=== PATIENT | female | born 1985 | race Caucasian/White ===

== ENCOUNTER 2020-09-18 08:19 | Outpatient (REF) | payer OTHER, SELFPAY ==
[2020-09-18 10:42] LABS: Alanine Aminotransferase 10 U/L (0-31); Albumin Level 4.1 g/dL (3.5-5.0); Alkaline Phosphatase 24 U/L (39-117); Anion Gap 10 (12-20); Aspartate Amino Transferase 16 U/L (5-31); Bilirubin Total 0.8 mg/dL (0.0-1.0); Blood Urea Nitrogen 16 mg/dL (9-16); Carbon Dioxide 27 mmol/L (22-29); Chloride 106 mmol/L (96-108); Cholesterol 168 mg/dL; Estimated Glomerular Filt Rate > 60; Glucose Fasting 81 mg/dL (60-99); HDL Cholesterol 76 mg/dL; LDL Cholesterol Calculated 76 mg/dl; Potassium 4.4 mmol/l (3.3-5.1); Sodium 139 mmol/L (135-145); Total Protein 6.3 g/dL (6.5-8.0); Triglycerides 81 mg/dL
[2020-09-18 10:57] LABS: Vitamin D 25-OH Total 31.6 ng/mL (>30)
== END 2020-09-18 08:20 | disposition home or self-care (01) ==
LOC: HO.LAB 08:19
PROVIDERS: PCP Nurse Practitioner Family; Visit Provider Nurse Practitioner Family
DX: Z13.220 Encounter for screening for lipoid disorders (principal); Z13.21 Encounter for screening for nutritional disorder; Z13.29 Encounter for screening for other suspected endocrine disorder
CPT/HCPCS: 80053; 80061; 82306; 84443

== ENCOUNTER 2020-09-26 11:40 | Outpatient (REF) | payer OTHER, SELFPAY ==
[2020-09-26 12:15] LABS: COVID-19 Test Negative (Negative)
== END 2020-09-26 11:41 | disposition home or self-care (01) ==
LOC: HO.LAB 11:40
PROVIDERS: Visit Provider Internal Medicine
DX: Z20.828 Contact with and (suspected) exposure to other viral communicable diseases (principal)
CPT/HCPCS: 87635; C9803

== ENCOUNTER 2021-04-15 12:45 | Outpatient (REF) | payer OTHER, SELFPAY ==
[2021-04-15 13:21] LABS: MANUAL DIFF FLAG NO
[2021-04-15 13:43] LABS: Alanine Aminotransferase 15 U/L (0-31); Albumin Level 4.2 g/dL (3.5-5.0); Alkaline Phosphatase 27 U/L (39-117); Aspartate Amino Transferase 16 U/L (5-31); Basophils Absolute Auto 0.1 X10*3/uL (0.0-0.2); Bilirubin Direct 0.3 mg/dL (0.0-0.5); Bilirubin Total 0.8 mg/dL (0.0-1.0); Eosinophils Absolute Auto 0.1 X10*3/uL (0.0-0.4); Eosinophils Percent Auto 1.5 % (0-4); Hematocrit 40.1 % (37-47); Hemoglobin 13.1 g/dl (12.0-16.0); Imm Gran Abs Auto 0.02 X10*3/uL (0.00-0.03); Imm Gran Pct Auto 0.3 % (0.0-0.4); Lymphocytes Absolute Auto 2.2 X10*3/uL (1.2-4.9); Lymphocytes Percent Auto 30.1 % (20-40); Mean Corpuscular HGB Conc 32.7 g/dl (31.0-35.0); Mean Corpuscular Hemoglobin 31.3 pg (27.0-33.0); Mean Corpuscular Volume 95.9 fL (80-98); Monocytes Absolute Auto 0.5 X10*3/uL (0.1-1.2); Monocytes Percent Auto 6.3 % (2-11); Neutrophils Absolute Auto 4.4 X10*3/uL (2.0-8.3); Neutrophils Percent Auto 60.8 % (45-73); Platelet Count 299 X10*3/uL (160-400); Red Blood Count 4.18 X10*6/uL (4.20-5.50); Red Cell Distribution Width 12.4 % (11.0-16.0); Total Protein 6.5 g/dL (6.5-8.0); White Blood Count 7.2 X10*3/uL (4.8-10.8)
== END 2021-04-15 12:46 | disposition home or self-care (01) ==
LOC: HO.LAB 12:45
PROVIDERS: PCP Nurse Practitioner Family; Visit Provider Physician Assistant Medical
DX: L30.9 Dermatitis, unspecified (principal); L82.1 Other seborrheic keratosis
CPT/HCPCS: 36415; 80076; 85025

== ENCOUNTER 2021-09-12 11:00 | Outpatient (RCR) | payer OTHER, SELFPAY ==
--- NOTE | 2021-07-12 11:39 | MHC.PT.EP ---
[facility] [place] Office [place] Office [place] Office [address] Olena Brown [address] [phone] F: [phone] F: [phone] F: [phone] F: [phone] Physical Therapy Plan of Care Date of Evaluation: Date of Surgery: Diagnosis: right hip pain. Assessment: The patient arrived reporting right hip pain. 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 Her right illeum was rotated anteriorly. She was positive for an upslip on her left illeum. Hypomobility in left SIJ combined with increased hip mobility and flexibility created instability in right hip. After MET corrections she no longer had right hip clicking. I addressed intermittent DARIO by educating her on Pelvic floor health. I issued her HEP of pelvic stability combined with PFM contractions. I gave preliminary education on behavior modification and exercises/activities that may predispose her to increased pain. She is an excellent candidate for skilled PT. Frequency and Duration: The patient will be seen 2x/week x 4 weeks Short Term Goals: 1. Pt to improve behavior and habits that will limit aggravating SIJ dysfunction 2. Pt to be able to show improved breathing mechanics for bending and lifting. 3. Pt to be able to appropriately recruit PFM to help improve urinary incontinence. Intermediate Goals: 1. Pt to report less occurrence of hip clicking and catching with daily movement and/or exercise. 2. The patient to be able to return to PLOF without right hip pain. Treatment Plan: Modalities to reduce pain, spasms and effusion. Manual therapy to restore motion and function. Therapeutic exercise to improve strength and flexibility. Neuromuscular re-education for posture and balance. Therapeutic activities to return to functional activities of daily living. Electronically signed by: Jeana Dubose PT DPT Please sign and return to therapist. Thank you for your referral.
== END 2021-09-26 09:00 | disposition home or self-care (01) ==
LOC: HO.PT 11:00
PROVIDERS: PCP Nurse Practitioner Family; Visit Provider Nurse Practitioner Family
DX: M70.71 Other bursitis of hip, right hip (principal)
CPT/HCPCS: 97110; 97112; 97140; 97162

== ENCOUNTER 2021-10-01 07:59 | Outpatient (REF) | payer OTHER, SELFPAY ==
[2021-10-02 08:43] LABS: HBc Num1 0.05 S/CO (0.00-0.79); Hepatitis B Core Antibody Nonreactive (Nonreactive); ~HepC Num1 0.08 S/CO (0.00-0.79); ~Hepatitis C Antibody Nonreactive (Nonreactive)
[2021-10-02 08:48] LABS: HIV AB/AG Nonreactive (Nonreactive); HIV Num 1 0.06 S/CO (0.00-0.99)
[2021-10-02 09:54] LABS: Syphilis Screen Nonreactive (Nonreactive)
== END 2021-10-01 08:00 | disposition home or self-care (01) ==
LOC: HO.LAB 07:59
PROVIDERS: PCP Nurse Practitioner Family; Visit Provider Advanced Practice Midwife
DX: Z01.84 Encounter for antibody response examination (principal); Z11.4 Encounter for screening for human immunodeficiency virus [HIV]; Z11.59 Encounter for screening for other viral diseases; Z20.2 Contact with and (suspected) exposure to infections with a predominantly sexual mode of transmission
CPT/HCPCS: 36415; 86704; 86780; 86803; 87389

== ENCOUNTER 2021-11-20 08:17 | Outpatient (REF) | payer OTHER, SELFPAY ==
[2021-11-20 08:54] LABS: Appearance Urine CLEAR; Color Urine YELLOW; Glucose Urine UA NEG (NEG); Leukocyte Esterase Urine NEG (NEG); Nitrite Urine NEG (NEG); PH 5.5 (5.0-8.0); Specific Gravity - Urine >= 1.030 (1.005-1.025); UACC Culture Trigger NO; Urine Blood TRACE (NEG); Urine Ketones NEG (NEG); Urine Protein NEG (NEG-TRACE)
[2021-11-20 09:12] LABS: Alanine Aminotransferase 12 U/L (0-31); Albumin Level 3.9 g/dL (3.5-5.0); Alkaline Phosphatase 24 U/L (39-117); Anion Gap 9 (12-20); Aspartate Amino Transferase 19 U/L (5-31); Bilirubin Total 0.9 mg/dL (0.0-1.0); Blood Urea Nitrogen 15 mg/dL (9-16); Calcium 9.5 mg/dL (8.4-10.2); Carbon Dioxide 26 mmol/L (22-29); Chloride 108 mmol/L (96-108); Cholesterol 169 mg/dL; Estimated Glomerular Filt Rate > 60; Glucose Fasting 88 mg/dL (60-99); HDL Cholesterol 68 mg/dL; LDL Cholesterol Calculated 83 mg/dl; Sodium 139 mmol/L (135-145); Total Protein 6.4 g/dL (6.5-8.0); Triglycerides 94 mg/dL
[2021-11-20 09:15] LABS: Squamous Epithelial Cell Urine TRACE /LPF
[2021-11-20 09:17] LABS: RBC Urine 0 /HPF (0); WBC Urine 0-2 /HPF (0-4)
[2021-11-20 09:32] LABS: TSH reflex Free T4 1.64 uIU/mL (0.32-4.0)
== END 2021-11-20 08:18 | disposition home or self-care (01) ==
LOC: HO.LAB 08:17
PROVIDERS: PCP Nurse Practitioner Family; Visit Provider Nurse Practitioner Family
DX: Z00.00 Encounter for general adult medical examination without abnormal findings (principal)
CPT/HCPCS: 36415; 80053; 80061; 81001; 84443

== ENCOUNTER → 2021-11-21 08:57 | Outpatient (BNVA) | payer OTHER, SELFPAY | PROVIDERS: PCP Nurse Practitioner Family; Referring Provider Nurse Practitioner Family; Visit Provider Surgery | DX: K64.5 Perianal venous thrombosis (principal) | CPT/HCPCS: 46600 ==

== ENCOUNTER 2021-11-26 12:03 | Outpatient (REF) | payer OTHER, SELFPAY ==
--- NOTE | ~2021-11-26 | US_ITS ---
EXAMINATION: US VENOUS WITH DOPPLER UPPER EXTREMITY, LEFT CLINICAL INFORMATION: Pain post IV puncture COMPARISON: None TECHNIQUE: Ultrasound of the upper extremity is performed using compression sonography and color and pulse Doppler flow with assessment of augmentation of flow. There is also imaging and Doppler assessment of the jugular and subclavian veins. Spectral analysis with color-flow imaging is performed. FINDINGS: The left internal jugular, subclavian, axillary, brachial, basilic and cephalic veins are patent. The radial and ulnar veins in the forearm are patent. No soft tissue solid or cystic mass is seen. US/US venous duplex UE LT IMPRESSION: No DVT demonstrated in the left upper extremity.
== END 2021-11-26 12:04 | disposition home or self-care (01) ==
LOC: HO.US 12:03
PROVIDERS: PCP Nurse Practitioner Family; Visit Provider Nurse Practitioner Family
DX: M79.602 Pain in left arm (principal); L98.9 Disorder of the skin and subcutaneous tissue, unspecified
CPT/HCPCS: 93971

== ENCOUNTER 2021-12-24 13:38 | Outpatient (REF) | payer OTHER, SELFPAY ==
[2021-12-24 14:51] LABS: Urine Cytology See Pathology rpt
[2021-12-24 14:53] LABS: Appearance Urine CLEAR; Color Urine STRAW; Glucose Urine UA NEG (NEG); Leukocyte Esterase Urine NEG (NEG); Nitrite Urine NEG (NEG); Specific Gravity - Urine <= 1.005 (1.005-1.025); Urine Blood NEG (NEG); Urine Ketones NEG (NEG); Urine Protein NEG (NEG-TRACE)
== END 2021-12-24 13:39 | disposition home or self-care (01) ==
LOC: HO.LAB 13:38
PROVIDERS: PCP Nurse Practitioner Family; Visit Provider Nurse Practitioner Family
DX: R31.29 Other microscopic hematuria (principal)
CPT/HCPCS: 81003; 87086; 88112

== ENCOUNTER 2022-05-20 08:02 | Outpatient (REF) | payer OTHER, SELFPAY ==
[2022-05-20 09:11] LABS: Appearance Urine CLEAR; Color Urine YELLOW; Glucose Urine UA NEG (NEG); Leukocyte Esterase Urine NEG (NEG); Nitrite Urine NEG (NEG); Specific Gravity - Urine 1.025 (1.005-1.025); UACC Culture Trigger NO; Urine Blood 1+ (NEG); Urine Ketones NEG (NEG); Urine Protein NEG (NEG-TRACE)
[2022-05-20 09:23] LABS: Mucus Urine 1+ /LPF; Squamous Epithelial Cell Urine 1+ /LPF; WBC Urine 0-2 /HPF (0-4)
== END 2022-05-20 08:03 | disposition home or self-care (01) ==
LOC: HO.LAB 08:02
PROVIDERS: PCP Nurse Practitioner Family; Visit Provider Nurse Practitioner Family
DX: Z00.00 Encounter for general adult medical examination without abnormal findings (principal)
CPT/HCPCS: 81001

== ENCOUNTER 2022-05-21 08:44 | Outpatient (REF) | payer OTHER, SELFPAY ==
[2022-05-21 08:55] LABS: MANUAL DIFF FLAG NO
[2022-05-21 10:32] LABS: Basophils Absolute Auto 0.1 X10*3/uL (0.0-0.2); Basophils Percent Auto 0.9 % (0-2); Eosinophils Absolute Auto 0.1 X10*3/uL (0.0-0.4); Eosinophils Percent Auto 1.7 % (0-4); Hematocrit 40.2 % (37.0-47.0); Hemoglobin 13.1 g/dl (12.0-16.0); Imm Gran Abs Auto 0.04 X10*3/uL (0.00-0.03); Imm Gran Pct Auto 0.6 % (0.0-0.4); Lymphocytes Absolute Auto 1.9 X10*3/uL (1.2-4.9); Lymphocytes Percent Auto 30.2 % (20-40); Mean Corpuscular HGB Conc 32.6 g/dl (31.0-35.0); Mean Corpuscular Hemoglobin 31.5 pg (27.0-33.0); Mean Corpuscular Volume 96.6 fL (80.0-98.0); Mean Platelet Volume 11.9 fL (9.4-12.3); Monocytes Absolute Auto 0.5 X10*3/uL (0.1-1.2); Monocytes Percent Auto 7.8 % (2-11); Neutrophils Absolute Auto 3.8 x10*3/uL (2.0-8.3); Neutrophils Percent Auto 58.8 % (45-73); Platelet Count 306 X10*3/uL (160-400); Red Blood Count 4.16 X10*6/uL (4.20-5.50); Red Cell Distribution Width 13.1 % (11.0-16.0); White Blood Count 6.4 X10*3/uL (4.8-10.8)
[2022-05-21 11:09] LABS: Alanine Aminotransferase 18 U/L (0-31); Albumin Level 4.1 g/dL (3.5-5.0); Alkaline Phosphatase 18 U/L (39-117); Anion Gap 13 (12-20); Aspartate Amino Transferase 22 U/L (5-31); Bilirubin Total 1.1 mg/dL (0.0-1.0); Blood Urea Nitrogen 14 mg/dL (9-16); Calcium 9.3 mg/dL (8.4-10.2); Carbon Dioxide 25 mmol/L (22-29); Chloride 108 mmol/L (96-108); Estimated Glomerular Filt Rate 59; Glucose Fasting 82 mg/dL (60-99); Potassium 4.6 mmol/L (3.3-5.1); Sodium 141 mmol/L (135-145); Total Protein 6.6 g/dL (6.5-8.0)
== END 2022-05-21 08:45 | disposition home or self-care (01) ==
LOC: HO.LAB 08:44
PROVIDERS: PCP Nurse Practitioner Family; Visit Provider Nurse Practitioner Family
DX: N20.0 Calculus of kidney (principal)
CPT/HCPCS: 36415; 80053; 85025

== ENCOUNTER 2022-05-28 14:50 | Outpatient (REF) | payer OTHER, SELFPAY ==
--- NOTE | ~2022-05-28 | US_ITS ---
EXAMINATION: US RETROPERITONEAL LIMITED (RENAL ONLY) CLINICAL INFORMATION: Calculus of kidney. COMPARISON: US retroperitoneal limited (renal only) 02/27/2020 and 03/08/2019. XR abdomen KUB 08/24/2017 and 07/29/2017. CT abdomen and pelvis without contrast 02/20/2017. TECHNIQUE: Real-time imaging of the kidneys. FINDINGS: RIGHT KIDNEY: 11.3 x 5.7 x 4.9 cm (SAG x AP x TRV). The kidney is normal in size, contour, and echogenicity. Renal cortical thickness is normal. No calculi or focal parenchymal lesions or hydronephrosis. LEFT KIDNEY: 10.6 x 5.1 x 5.1 cm (SAG x AP x TRV). The kidney is normal in size, contour, and echogenicity. Renal cortical thickness is normal. No calculi or focal parenchymal lesions. No hydronephrosis. US/US renal BI IMPRESSION: Unremarkable renal ultrasound.
== END 2022-05-28 14:51 | disposition home or self-care (01) ==
LOC: HO.US 14:50
PROVIDERS: Visit Provider Nurse Practitioner Family
DX: N20.0 Calculus of kidney (principal)
CPT/HCPCS: 76775

== ENCOUNTER 2022-10-06 08:28 | Outpatient (REF) | payer OTHER, SELFPAY ==
[2022-10-06 17:43] LABS: CT PCR NOT DETECTED (Not Detect.); NG PCR NOT DETECTED (Not Detect.)
[2022-10-07 12:07] LABS: BV Int Neg Control Negative (Negative); BV Int Pos Control Positive (Positive)
== END 2022-10-06 08:29 | disposition home or self-care (01) ==
LOC: HO.LNP 08:28
PROVIDERS: Visit Provider Advanced Practice Midwife
DX: Z01.419 Encounter for gynecological examination (general) (routine) without abnormal findings (principal)
CPT/HCPCS: 87480; 87491; 87510; 87591; 87660

== ENCOUNTER 2022-11-11 08:31 | Outpatient (REF) | payer OTHER, SELFPAY ==
[2022-11-11 08:37] LABS: MANUAL DIFF FLAG NO
[2022-11-11 09:05] LABS: Basophils Absolute Auto 0.1 X10*3/uL (0.0-0.2); Basophils Percent Auto 0.7 % (0-2); Eosinophils Absolute Auto 0.1 X10*3/uL (0.0-0.4); Eosinophils Percent Auto 1.7 % (0-4); Hematocrit 39.6 % (37.0-47.0); Hemoglobin 13.1 g/dl (12.0-16.0); Imm Gran Abs Auto 0.02 X10*3/uL (0.00-0.03); Imm Gran Pct Auto 0.3 % (0.0-0.4); Lymphocytes Absolute Auto 1.9 X10*3/uL (1.2-4.9); Lymphocytes Percent Auto 27.2 % (20-40); Mean Corpuscular HGB Conc 33.1 g/dl (31.0-35.0); Mean Corpuscular Hemoglobin 31.3 pg (27.0-33.0); Mean Corpuscular Volume 94.7 fL (80.0-98.0); Mean Platelet Volume 11.1 fL (9.4-12.3); Monocytes Absolute Auto 0.9 X10*3/uL (0.1-1.2); Monocytes Percent Auto 12.7 % (2-11); Neutrophils Absolute Auto 4.1 x10*3/uL (2.0-8.3); Neutrophils Percent Auto 57.4 % (45-73); Platelet Count 284 X10*3/uL (160-400); Red Blood Count 4.18 X10*6/uL (4.20-5.50); Red Cell Distribution Width 12.7 % (11.0-16.0); White Blood Count 7.1 X10*3/uL (4.8-10.8)
[2022-11-11 09:14] LABS: Appearance Urine Clear; Color Urine Yellow; Glucose Urine UA Negative (Negative); Leukocyte Esterase Urine Negative (Negative); Nitrite Urine Negative (Negative); PH 5.5 (5.0-9.0); UMIC TRIGGER UACC YES; Urine Blood Trace (Negative); Urine Ketones Negative (Negative); Urine Protein Negative (Neg-Trace)
[2022-11-11 09:19] LABS: Bacteria Urine None Seen (None Seen); Hyaline Casts Urine 0-2 /LPF (0-2); RBC Urine 0-2 /HPF (0-2); Squamous Epithelial Cell Urine 0-2 /HPF (0-2); WBC Urine 0-5 /HPF (0-5)
[2022-11-11 09:52] LABS: Alanine Aminotransferase 17 U/L (0-31); Albumin Level 4.1 g/dL (3.5-5.0); Alkaline Phosphatase 24 U/L (39-117); Anion Gap 10 (12-20); Aspartate Amino Transferase 21 U/L (5-31); Blood Urea Nitrogen 12 mg/dL (9-16); Calcium 9.2 mg/dL (8.4-10.2); Carbon Dioxide 26 mmol/L (22-29); Chloride 106 mmol/L (96-108); Cholesterol 162 mg/dL; Estimated Glomerular Filt Rate > 60; Glucose Fasting 82 mg/dL (60-99); HDL Cholesterol 77 mg/dL; LDL Cholesterol Calculated 71 mg/dl; Potassium 4.2 mmol/L (3.3-5.1); Sodium 138 mmol/L (135-145); Total Protein 6.5 g/dL (6.5-8.0); Triglycerides 74 mg/dL
[2022-11-11 09:59] LABS: TSH reflex Free T4 1.65 uIU/mL (0.32-4.0); Vitamin D 25-OH Total 31.9 ng/mL (>30)
[2022-11-11 11:22] LABS: Bilirubin Total 0.6 mg/dL (0.0-1.0)
== END 2022-11-11 08:32 | disposition home or self-care (01) ==
LOC: HO.LAB 08:31
PROVIDERS: PCP Nurse Practitioner Family; Visit Provider Nurse Practitioner Family
DX: Z00.00 Encounter for general adult medical examination without abnormal findings (principal); E55.9 Vitamin D deficiency, unspecified
CPT/HCPCS: 36415; 80053; 80061; 81001; 81003; 82306; 84443; 85025

== ENCOUNTER 2022-11-20 13:02 | Outpatient (REF) | payer OTHER, SELFPAY ==
[2022-11-20 15:06] LABS: Folate 5.6 ng/mL (> or = 4.0); Vitamin B12 338 pg/mL (200-900)
[2022-11-22 13:54] LABS: Ceruloplasmin 32 mg/dL (18-53)
[2022-11-25 14:03] LABS: Zinc 73 mcg/dL (60-130)
== END 2022-11-20 13:03 | disposition home or self-care (01) ==
LOC: HO.LAB 13:02
PROVIDERS: PCP Nurse Practitioner Family; Visit Provider Nurse Practitioner Family
DX: R74.8 Abnormal levels of other serum enzymes (principal)
CPT/HCPCS: 36415; 82390; 82607; 82746; 83735; 84630

== ENCOUNTER 2022-11-25 08:41 | Outpatient (REF) | payer OTHER, SELFPAY ==
--- NOTE | ~2022-11-25 | MM_ITS ---
EXAMINATION: MM SCREENING DIGITAL BREAST TOMOSYNTHESIS, BILATERAL CLINICAL INFORMATION: Screening. Asymptomatic. The lifetime risk of breast cancer based on the Tyrer-Cuzick Model is 18%. COMPARISON: Mammography: 04/12/2018 (baseline); right breast ultrasound 04/12/2018 TECHNIQUE: Digital breast tomosynthesis is performed in both the craniocaudal and mediolateral oblique views along with computer-aided detection (CAD). Synthesized 2D images are generated from the tomosynthesis. FINDINGS: The breasts are heterogeneously dense, which may obscure small masses (ACR BI-RADS breast composition Category c). There are no significant masses, abnormal calcifications, or other abnormalities. Parenchymal pattern is similar to prior studies. There is no developing density or architectural abnormality. The axilla and skin contours are unremarkable. No significant changes. MM/MM tomosynthesis screening BI IMPRESSION: No mammographic evidence of malignancy. ASSESSMENT: BI-RADS 1: Negative RECOMMENDATION: Routine annual mammography screening. This patient's information was entered into a reminder system with a target due date for their next mammogram.
== END 2022-11-25 08:42 | disposition home or self-care (01) ==
LOC: HO.MAMMO 08:41
PROVIDERS: PCP Nurse Practitioner Family; Visit Provider Nurse Practitioner Family
DX: Z12.31 Encounter for screening mammogram for malignant neoplasm of breast (principal)
CPT/HCPCS: 77063; 77067

== ENCOUNTER → 2023-06-16 11:28 | Outpatient (BNV) | payer OTHER, SELFPAY ==
--- NOTE | 2023-06-16 11:28 | A.OFFVIS_ITS ---
Intake Intake Visit Reasons: Amb Documentation Allergies No Known Allergies Allergy (Verified 05/12/23 08:27) Medication List - Last Reconciled 06/16/23 by Ron Waldron MD diazepam 5 mg PO BEDTIME PRN levonorgestrel-ethinyl estrad 0.15 mg-30 mcg (91) (Jolessa) 1 tab PO DAILY HPI HPI Comments History of Present Illness Details 38-year-old female presenting with a small lump in the right ear lobe noted after at ear piercing. She now feels a persistent lump below the skin with no redness or discharge. She denies any foreign body within the site. She is requesting excision. 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 Palpable inclusion cyst located in the lower ear lobe approximately 3-4 mm in diameter, with no overlying erythema or discharge. Resp Effort & Inspection: normal respiratory effort Skin General skin exam: no rashes or lesions noted Assessment & Plan Assessment & Plan (1) Epidermal inclusion cyst: Code(s): L72.0 - Epidermal cyst Plan Right ear epidermal inclusion cyst. I recommended an excision under local anesthesia as a minor surgery. This will be scheduled at her earliest convenience. Coding Level of Care Code New Pt Level 3 (93076) Diagnoses Epidermal inclusion cyst L72.0
== END ==
PROVIDERS: PCP Nurse Practitioner Family; Visit Provider Surgery
DX: L72.0 Epidermal cyst (principal)
CPT/HCPCS: 99203

== ENCOUNTER 2023-06-30 07:36 | Outpatient (REF) | payer OTHER, SELFPAY ==
[2023-06-30 07:42] VITALS: BMI 24.0
[2023-06-30 07:43] VITALS: BP 110/77; PULSE 75; RESP 16; TEMP 36.4; O2SAT 98
[2023-06-30 08:26] VITALS: BP 130/79; PULSE 62; RESP 16; O2SAT 95
--- NOTE | 2023-06-30 08:28 | W.PM.OPN ---
Operative Note Operative Note Date of Service: 06/30/23 Narrative: Preoperative diagnosis:Epidermal inclusion cyst right ear lobe Postoperative diagnosis: same Procedure: excision of epidermal inclusion cyst right ear lobe Surgeon: Ron Waldron MD Research And Development Manager: none Anesthesia: Sensorcaine 0.5% with epi Indications for procedure: 38-year-old female presenting with a subcutaneous nodule in the right ear lobe mobile within the subcutaneous tissue suggestive of a epidermal inclusion cyst. Lesion measures approximately 2-3 mm in diameter. Operative findings: Epidermal inclusion cyst right ear lobe Specimen: epidermal inclusion cyst right ear lobe Estimated blood loss: less than 2 mL Complications: none Procedure details: patient was brought to the minor surgery suite placed in a left lateral decubitus position. The site of surgery was confirmed by the patient in the right ear lobe. After assuring informed consent the skin was prepped with Betadine and draped in a sterile fashion. Local anesthesia was then infiltrated circumferentially in the posterior lobe directly below the epidermal inclusion cyst. An elliptical incision was then created in the skin carried out through subcutaneous tissue down to the cyst wall. This was then grasped with a hemostat. A sharp scissors was then used to dissect the lesion from the surrounding subcutaneous tissue. After assuring adequate hemostasis the skin was closed using interrupted 6 0 nylon sutures x2. A sterile spot bandage was applied. The patient tolerated the procedure well was discharged in stable condition. She will follow-up in 1 week for suture removal.
== END 2023-06-30 07:37 | disposition home or self-care (01) ==
LOC: HO.MS 07:36
PROVIDERS: PCP Nurse Practitioner Family; Visit Provider Surgery
PROC: (CPT 69100; principal; 2023-06-30 08:00)
DX: L72.0 Epidermal cyst (principal)
CPT/HCPCS: 69100; 88304; 88305

== ENCOUNTER → 2023-06-30 07:36 | Outpatient (BNV) | payer OTHER, SELFPAY | PROVIDERS: PCP Nurse Practitioner Family; Visit Provider Surgery | DX: L72.0 Epidermal cyst (principal) | CPT/HCPCS: 11440 ==

== ENCOUNTER → 2023-07-09 09:21 | Outpatient (BNVA) | payer OTHER, SELFPAY | PROVIDERS: PCP Nurse Practitioner Family; Visit Provider Surgery ==

== ENCOUNTER 2023-11-24 14:25 | Outpatient (REF) | payer OTHER, SELFPAY ==
[2023-12-01 03:14] LABS: HPV 16 RNA NOT DETECTED (NOT DETECTED); HPV mRNA E6/E7 rflx Detected (Not Detected)
== END 2023-11-24 14:26 | disposition home or self-care (01) ==
LOC: HO.LNP 14:25
PROVIDERS: PCP Nurse Practitioner Family; Visit Provider Advanced Practice Midwife
DX: Z01.419 Encounter for gynecological examination (general) (routine) without abnormal findings (principal); Z11.51 Encounter for screening for human papillomavirus (HPV); Z20.2 Contact with and (suspected) exposure to infections with a predominantly sexual mode of transmission
CPT/HCPCS: 0353U; 87624; 87625; 88142

== ENCOUNTER 2023-11-24 14:25 | Outpatient (AMB) | payer OTHER, SELFPAY ==
--- NOTE | 2023-11-24 14:26 | A.OFFVIS_ITS ---
Intake Vital Signs 11/24/23 14:36 Height 5 ft 4 in Weight 151 lb BMI 25.9 BP 110/76 Intake Visit Reasons: Annual/ DO NOT RS Technical Support Specialist: Technical Support Specialist Present (Gladys) Allergies No Known Allergies Allergy (Verified 11/24/23 14:36) Is last menstrual period known: Yes Last menstrual period: 10/25/23 HPI HPI Comments History of Present Illness Details She is a premenopausal woman presenting for annual examination. Doing well with concerns: Break through bleeding with the pill no missed pills, towards the end of the pill pack. Not interested in switching brands due to the previous bran caused a rash. She tries to eat healthy and stays active with exercise. Regular monthly menses. Currently is sexually active. She denies vaginal itching and irritation. STI screening offered; she accepts. Denies family history of breast, ovarian or colon cancer. Last pap smear 2018, negative. Mammogram: 2022. She denies any contraindications to control such as: migraines with aura, history of DVT or pulmonary emboli, high blood pressure, liver disease, thrombolic disorders, Lupus, +TI, breast cancer, or smoking. 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[employer] [place] Current occupational exposures/hazards: No Sexual orientation: Straight/Heterosexual Gender identity: Female Cognitive needs: No Hearing needs: No Vision needs: No Female Reproductive History Menstrual Duration of menses: 3-5 days Date of last menstrual period: 10/25/23 control method: pills and other (vasectomy) Total pregnancies: 2 Full term: 2 Number of Living Children: 2 Date of last pap smear: 06/24/19 (neg pap and hpv) Date of Mammogram: 11/25/22 (Birad 1) Review of Systems Const All systems reviewed & are unremarkable except as noted in HPI and below Reports as per HPI Eyes Reports no additional complaints ENT Reports no additional complaints Card Reports no additional complaints Resp Reports no additional complaints GI Reports as per HPI and Reports no additional complaints Reports as per HPI Musc Reports no additional complaints Skin/Breast Reports as per HPI Neuro Reports no additional complaints Psych Reports no additional complaints Endo Reports no additional complaints Wayne/Lymph Reports no additional complaints Aller/Immun Reports no additional complaints Physical Exam Vital Signs: Last Vital Signs BP 110/76 11/24/23 14:36 BMI result Body Mass Index 25.9 Const General: cooperative, healthy appearing, no acute distress, well developed and alert Orientation/consciousness: patient oriented x3 HEENT Head: Yes normal to inspection Eyes General: appearance normal, both eyes and all related structures Neck Neck: Yes normal visual inspection Thyroid: Thyroid normal Chest Other: Breast reconstructions scarring bilat Chest palpation & inspection: normal inspection of the chest and other (no puckering, dimpling, peau de orange, retraction, discharge, masses) Breast/axilla inspection: normal inspection of the breasts Breast/axilla palpation: normal palpation of the breasts Resp Effort & Inspection: normal respiratory effort GI Other: Abdominoplasty scarring Inspection: Yes normal to inspection Palpation (GI): Soft to palpation Rectal Exam - Female: deferred General: Yes bladder normal to palpation External Female Exam: normal external appearance and normal appearance of the urethra Speculum Exam - Vagina: normal appearance of the vagina, normal palpation and n ormal vaginal discharge Speculum Exam - Cervix: normal appearance of the cervix, normal palpation and Patulous cervix present Bimanual exam- vagina & uterus: normal bimanual exam, normal palpation, uterine size normal, bladder normal to palpation, normal palpation and non-tender Bimanual Exam- Adnexa, other: no masses Skin General skin exam: no rashes or lesions noted Rashes: no rashes Neuro General: patient oriented x3 Cognition (Neuro): normal cognition Extrem General: Yes normal to inspection Psych Attitude: cooperative Thought process: Normal thought process present Assessment & Plan Assessment & Plan (1) Encounter for well woman exam with routine gynecological exam: Code(s): Z01.419 - Encounter for gynecological examination (general) (routine) without abnormal findings Plan Discussed: Current recommendations for pap smears per ASCCP guidelines. Breast awareness and periodic breast exams. Maintain a healthy lifestyle including a well balanced diet and routine exercise. Use condoms for STI and prevention. Mammogram yearly. control hormone use warnings: go to ER if and loss of vision, blindness, severe headache, chest pain or difficulty breathing, severe abdominal pain, or any pain or swelling in an extremity. Discussed management of the pill with extended use follow-up as needed if any other concerns. All of her questions and concerns were addressed to the best of my ability. RTO in one year for annual electronic technician examination. This note is constructed using voice recognition software. While every effort has been made to ensure accuracy, clinical dietician errors may have been included. Orders: Orders Pap Smear Today Z01.419 - Encounter for gynecological examination (general) (routine) without abnormal findings CT NG by PCR Today Z20.2 - Contact with and (suspected) exposure to infections with a predominantly sexual mode of transmission Hepatitis C Antibody Today Z20.2 - Contact with and (suspected) exposure to infections with a predominantly sexual mode of transmission Hepatitis B Core Antibody Today Z20.2 - Contact with and (suspected) exposure to infections with a predominantly sexual mode of transmission Syphilis Screen Today Z20.2 - Contact with and (suspected) exposure to infections with a predominantly sexual mode of transmission HIV Ab/Ag Today Z20.2 - Contact with and (suspected) exposure to infections with a predominantly sexual mode of transmission Medications: Refilled levonorgestrel-ethinyl estrad 0.15 mg-30 mcg (91) (Jolessa) 1 tab PO DAILY 91 ea 4RF Coding Level of Care Code Est Pt Prev Care 40-64y(09926) Diagnoses Encounter for well woman exam with routine gynecological exam Z01.419
[2023-11-24 14:36] VITALS: BP 110/76; BMI 25.9
== END 2023-11-24 15:12 | disposition home or self-care (01) ==
LOC: HO.HWS 14:25
PROVIDERS: PCP Nurse Practitioner Family; Visit Provider Advanced Practice Midwife
DX: Z01.419 Encounter for gynecological examination (general) (routine) without abnormal findings (principal)
CPT/HCPCS: 99396

== ENCOUNTER → 2023-12-01 08:45 | Outpatient (BNV) | payer OTHER, SELFPAY | PROVIDERS: PCP Nurse Practitioner Family; Visit Provider Radiology Diagnostic Radiology | DX: Z12.31 Encounter for screening mammogram for malignant neoplasm of breast (principal) | CPT/HCPCS: 77063; 77067 ==

== ENCOUNTER 2023-12-01 08:52 | Outpatient (REF) | payer OTHER, SELFPAY ==
--- NOTE | ~2023-12-01 | MM_ITS ---
EXAMINATION: MM SCREENING DIGITAL BREAST TOMOSYNTHESIS, BILATERAL CLINICAL INFORMATION: Screening. Asymptomatic. The patient is status post bilateral breast reduction. COMPARISON: Mammography: This study is compared with prior exams dating back to 2018. TECHNIQUE: Digital breast tomosynthesis is performed in both the craniocaudal and mediolateral oblique views along with computer-aided detection (CAD). Synthesized 2D images are generated from the tomosynthesis. FINDINGS: The breasts are extremely dense, which lowers the sensitivity of mammography (ACR BI-RADS breast composition Category d). There are no significant masses, abnormal calcifications, or other abnormalities. Post reduction changes are present in each breast. MM/MM tomosynthesis screening BI IMPRESSION: No mammographic evidence of malignancy. ASSESSMENT: BI-RADS BI-RADS 2 - Benign Findings RECOMMENDATION: Routine annual mammography screening. 1 year F/U This examination should not preclude the clinical evaluation of a suspicious palpable abnormality. This patient's information was entered into a reminder system with a target due date for their next mammogram.
== END 2023-12-01 08:53 | disposition home or self-care (01) ==
LOC: HO.MAMMO 08:52
PROVIDERS: PCP Nurse Practitioner Family; Visit Provider Nurse Practitioner Family
DX: Z12.31 Encounter for screening mammogram for malignant neoplasm of breast (principal)
CPT/HCPCS: 77063; 77067

== ENCOUNTER 2024-03-15 08:01 | Outpatient (AMB) | payer OTHER, SELFPAY ==
--- NOTE | 2024-03-15 08:03 | A.OFFPC_ITS ---
Vital Signs 03/15/24 08:04 Height 5 ft 4 in Weight 144 lb BMI 24.7 BP 100/70 Blood Pressure Location Lt brachial Position Sitting Pulse 73 Pulse Source Pulse Oximeter Pulse Oximetry (%) 97 Oxygen Delivery Method Room Air Intake Visit Reasons: Annual PE Allergies No Known Allergies Allergy (Verified 03/15/24 08:27) Medication List - Last Reconciled 03/15/24 by KIMMIE Anaya diazepam 5 mg PO BEDTIME PRN norgestrel-ethinyl estradiol 0.3-30 mg-mcg (Ryan (28)) 1 tab PO DAILY Tobacco use date assessed: 03/15/24 Dental Screening Dental Screen Date: 05/12/23 Did you have a dental visit in the last 12 months?: Yes Did you have a dental problem in the last 6 months where you did not have access to dental care?: No Was dental information given to patient?: Patient has dentist HPI Annual PE HPI Details Pt is here for a PE. Will order labs. Mammo is up to date. 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 1. Little interest or pleasure in doing things: not at all 2. Feeling down, depressed, or hopeless: not at all 3. Trouble falling or staying asleep, or sleeping too much: not at all 4. Feeling tired or having little energy: not at all 5. Poor appetite or overeating: not at all 6. Feeling bad about yourself - or that you are a failure or have let yourself or your family down: not at all 7. Trouble concentrating on things, such as reading the newspaper or watching television: not at all 8. Moving or speaking so slowly that other people could have noticed. Or the opposite - being so fidgety or restless that you have been moving around a lot more than usual: not at all 9. Thoughts that you would be better off or of hurting yourself in some way: not at all Total score: 0 Depression Screening Interpretation: Negative Depression Screening Done: Yes 90440 - PHQ-9 Billing: Yes Source: Developed by Drs. Juan Dick, Ashlee Echevarria, Dalton Carrillo and colleagues, with an educational janessa from [employer]. Thrive Questionnaire Date Thrive assessed: 03/15/24 I am a: Patient What is your living situation today?: I have a steady place to live Within the past 12 months, did the food you bought not last and you didn't have the money to get more?: Never true Within the past 12 months, did you worry whether your food would run out before you got money to buy more?: Never true Do you have trouble paying for medicines?: No Do you have trouble getting transportation to medical appointments?: No Do you have trouble paying your heating and electricity bill?: No Do you have trouble taking care of your child, family member or friend?: No Do you have trouble with day-to-day activities such as bathing, preparing meals, shopping, managing finances, etc.?: No Are you currently unemployed and looking for a job?: No Are you interested in more education?: No Currently or been in a relationship where the following occur: no concerns reported THRIVE Score: 0 AUDIT C Alcohol Use Questionnaire (AUDIT-C) 1. How often do you have a drink containing alcohol?: Monthly or less 2. How many drinks containing alcohol do you have on a typical day when you are drinking?: 1 or 2 3. How often do you have six or more drinks on one occasion?: Never Total Score: 1 Score Reviewed/Action Taken: Yes JULIAN-7 AMB Questionnaire JULIAN-7 Date JULIAN - 7 assessed: 03/15/24 Feeling nervous, anxious, or on edge: 0 = Not at all Not being able to stop or control worryin = Not at all Worrying too much about different things: 0 = Not at all Trouble relaxin = Not at all Being so restless that it is hard to sit still: 0 = Not at all Becoming easily annoyed or irritable: 0 = Not at all Feeling afraid as if something awful might happen: 0 = Not at all Total JULIAN-7 score (0-4 normal; 5-9 mild; 10-14 moderate; 15-21 severe): 0 Source: Developed by Drs. Juan Dick, Ashlee Echevarria, Dalton Carrillo and colleagues, with an educational janessa from [employer]. Review of Systems Const Denies chills and Denies fever(s) Eyes Denies blurry vision ENT Denies vertigo, Denies dizziness and Denies sore throat Card Denies chest pain at rest, Denies chest pain with activity, Denies diaphoresis, Denies dyspnea and Denies dyspnea on exertion Resp Denies cough, Denies dyspnea, Denies dyspnea on exertion and Denies wheezing GI Denies abdominal pain, Denies melena, Denies hematochezia, Denies constipation, Denies diarrhea and Denies loose stools Denies hematuria Musc Denies numbness and Denies tingling Skin/Breast Denies lesions Neuro Denies vertigo, Denies dizziness, Denies numbness and Denies tingling Psych Denies anxiety, Denies depression, Denies homicidal ideation, Denies suicidal ideation and Denies other (substance abuse) Aller/Immun Denies wheezing Physical exam (Primary Care) Vital Signs: Last Vital Signs Pulse 73 03/15/24 08:04 BP 100/70 03/15/24 08:04 Pulse Ox 97 03/15/24 08:04 Oxygen Delivery Method Room Air 03/15/24 08:04 BMI result Body Mass Index 24.7 Tobacco/Smoking Status: Tobacco use Status Tobacco use date assessed 03/15/24 03/15/24 08:07 Patient Tobacco Use Status Never used Tobacco 03/15/24 08:03 e-Cigarette/Vaping Use Never Used 03/15/24 08:03 PHQ-9: PHQ-9 Score PHQ-9: Total score 0 03/15/24 08:09 Depression Screening Interpretation: Negative Thrive Assessment: Date of Thrive Assessment Date Thrive assessed 03/15/24 03/15/24 08:08 Currently or been in a relationship where the following occur: no concerns reported Const General: cooperative Nutritional Appearance: well nourished Orientation/consciousness: patient oriented x3 HENMT Head: Yes normal to inspection, Yes normocephalic and Yes atraumatic Ears: TM's normal bilaterally Eyes General: appearance normal, both eyes and all related structures Alignment and Position: alignment normal and position normal Neck Neck: Yes normal visual inspection and Yes no lymphadenopathy Thyroid: Thyroid normal Resp Effort & Inspection: normal respiratory effort Auscultation: clear to auscultation bilaterally Cardio Rate: regular rate Rhythm: regular rhythm Heart sounds: S1 normal heart sound present, S2 normal heart sound present and no murmurs GI Palpation (GI): Soft to palpation and nontender Auscultation: normal bowel sounds Skin Rashes: no rashes Neuro General: patient oriented x3, moves all extremities, no focal motor deficits and deep tendon reflexes 2+ bilaterally Romberg Test: Negative Psych Appearance: grossly normal Mental Status: mental status grossly normal Speech and movement: Normal speech and movement present Affect: normal affect Attitude: cooperative Thought process: Normal thought process present Thought content: Normal thought content present Insight: Good insight present (Psych) Judgement: Good judgement present (Psych) Assessment and Plan Assessment & Plan (1) Physical exam: Code(s): Z00.00 - Encounter for general adult medical examination without abnormal findings Plan: Labs ordered Plan The patient agreed to the use of a ophthalmic medical assistant for this encounter. Scribed for KIMMIE Joshi by Maricruz Conte ophthalmic medical assistant, on 03/15/2024 at 08:10 EST. Orders: Orders Complete Blood Count Auto Diff Today Z00.00 - Encounter for general adult medical examination without abnormal findings Lipid Panel Today Z00.00 - Encounter for general adult medical examination without abnormal findings Comprehensive Cascade. Panel Fast Today Z00.00 - Encounter for general adult medical examination without abnormal findings TSH reflex Free T4 Today Z00.00 - Encounter for general adult medical examination without abnormal findings UA CC w/rflx Micro + Cult Today Z00.00 - Encounter for general adult medical examination without abnormal findings Coding Level of Care Code Est Pt Prev Care 40-64y(82505) Diagnoses Physical exam Z00.00
[2024-03-15 08:04] VITALS: BP 100/70; PULSE 73; O2SAT 97; BMI 24.7
== END 2024-03-15 08:24 | disposition home or self-care (01) ==
PROVIDERS: PCP Nurse Practitioner Family; Visit Provider Nurse Practitioner Family
DX: Z00.00 Encounter for general adult medical examination without abnormal findings (principal)
CPT/HCPCS: 99396

== ENCOUNTER 2024-05-17 07:52 | Outpatient (REF) | payer OTHER, SELFPAY ==
[2024-05-17 08:15] LABS: MANUAL DIFF FLAG NO
[2024-05-17 08:45] LABS: Basophils Absolute Auto 0.1 X10*3/uL (0.0-0.2); Basophils Percent Auto 0.7 % (0-2); Eosinophils Absolute Auto 0.2 X10*3/uL (0.0-0.4); Eosinophils Percent Auto 1.8 % (0-4); Hematocrit 39.3 % (37.0-47.0); Hemoglobin 13.2 g/dl (12.0-16.0); Imm Gran Abs Auto 0.02 X10*3/uL (0.00-0.03); Imm Gran Pct Auto 0.2 % (0.0-0.4); Lymphocytes Percent Auto 36.2 % (20-40); Mean Corpuscular HGB Conc 33.6 g/dl (31.0-35.0); Mean Corpuscular Hemoglobin 31.9 pg (27.0-33.0); Mean Corpuscular Volume 94.9 fL (80.0-98.0); Mean Platelet Volume 11.3 fL (9.4-12.3); Monocytes Absolute Auto 0.5 X10*3/uL (0.1-1.2); Monocytes Percent Auto 5.5 % (2-11); Neutrophils Absolute Auto 4.6 x10*3/uL (2.0-8.3); Neutrophils Percent Auto 55.6 % (45-73); Platelet Count 292 X10*3/uL (160-400); Red Blood Count 4.14 X10*6/uL (4.20-5.50); Red Cell Distribution Width 12.3 % (11.0-16.0); White Blood Count 8.3 X10*3/uL (4.8-10.8)
[2024-05-17 09:07] LABS: Appearance Urine Clear; Color Urine Yellow; Glucose Urine UA Negative (Negative); Leukocyte Esterase Urine Negative (Negative); Nitrite Urine Negative (Negative); PH 5.5 (5.0-9.0); Specific Gravity - Urine 1.025 (1.005-1.025); Urine Blood Negative (Negative); Urine Ketones Negative (Negative); Urine Protein Negative (Neg-Trace)
[2024-05-17 09:18] LABS: Alanine Aminotransferase 10 U/L (0-31); Albumin Level 3.9 g/dL (3.5-5.0); Alkaline Phosphatase 19 U/L (39-117); Anion Gap 10 (12-20); Aspartate Amino Transferase 21 U/L (5-31); Bilirubin Total 0.8 mg/dL (0.0-1.0); Blood Urea Nitrogen 14 mg/dL (9-16); Calcium 9.4 mg/dL (8.4-10.2); Carbon Dioxide 25 mmol/L (22-29); Chloride 108 mmol/L (96-108); Cholesterol 157 mg/dL (<200); Estimated Glomerular Filt Rate > 60; Glucose Fasting 85 mg/dL (60-99); HDL Cholesterol 70 mg/dL (>40); LDL Cholesterol Calculated 69 mg/dL (<100); Sodium 139 mmol/L (135-145); Total Protein 6.5 g/dL (6.5-8.0); Triglycerides 94 mg/dL (<150)
[2024-05-17 09:34] LABS: TSH reflex Free T4 1.93 uIU/mL (0.32-4.0)
== END 2024-05-17 07:53 | disposition home or self-care (01) ==
LOC: HO.LAB 07:52
PROVIDERS: Absent Provider Advanced Practice Midwife; PCP Nurse Practitioner Family; Visit Provider Nurse Practitioner Family
DX: Z00.00 Encounter for general adult medical examination without abnormal findings (principal)
CPT/HCPCS: 36415; 80053; 80061; 81003; 84443; 85025

== ENCOUNTER → 2024-08-30 15:27 | Outpatient (REF) | payer OTHER, SELFPAY ==
--- NOTE | 2024-08-30 15:31 | CA_ITS ---
Transthoracic Echocardiogram Patient (Last, First, Middle): Ela Heath D Gender: Female Date of : 1985 Age: 39 Procedure Date: 08/30/2024 Procedure Type: Transthoracic Echocardiogram Location: OP Height: 162.56 cm Weight: 63.5 kg BSA: 1.68 m2 Heart Rate: bpm BP: 118 / 60 mmHg Freight Booker: Referring MD: Ron Duarte [facility] Boat Cleaning Supervisor: Stepan Graham MD Symptoms: Z82.49 - Family history of ischemic heart disease and other diseases of ... Study Quality: Good ECG Rhythm: Sinus Conclusions: - Normal study Findings Left Ventricle Normal left ventricular size, thickness, and systolic function. The visually estimated ejection fraction is between 60-65%. Spectral Doppler is indicative of a normal filling pattern. Right Ventricle Normal right ventricular cavity size and systolic function. Atria Both atria are normal in size. There is no evidence of interatrial shunt. Aortic Valve Normal aortic valve structure and function. There is no aortic valve stenosis. There is no aortic valve regurgitation. Mitral Valve Normal mitral valve structure and function. There is no mitral valve regurgitation. There is no mitral valve stenosis. Pulmonic Valve The pulmonic valve is likely normal. There is trace pulmonic valve regurgitation. Tricuspid Valve Normal tricuspid valve structure. There is trace tricuspid valve regurgitation. The right ventricular systolic pressure is normal. The right ventricular systolic pressure is 21 mmHg. Normal right atrial pressure. There is no evidence of pulmonary hypertension. Great Vessels All visible segments of the aorta are normal in size. The visualized portions of the pulmonary artery and branches are normal. Venous The inferior vena cava is normal in size and collapses greater than 50% with inspiration. Pericardium/Pleural There is no evidence of pericardial effusion. Prior Study Comparison No prior study available for comparison. Measurements 2D Linear Measurements IVSd: 0.96 0.6-0.9/0.6-1.0 cm LVIDd: 4.22 3.9-5.3/4.2-5.9 cm LVIDd Index: 2.51 2.4-3.2/2.2-3.1 cm/m2 LVIDs: 2.74 2.0-3.6 cm LVPWd: 1.00 0.7-1.1 cm Ao Root: 2.80 2.1-3.5 cm LA Diam: 3.10 2.7-3.8/3.0-4.0 cm LAIDs Index: 1.85 1.5-2.3 cm/m2 LV Mass: 167.67 67-162/88-224 g LV Mass Index: 99.80 43-95/49-115 g/m2 LVOT Diam: 2.00 3.0+(-)1.3 cm 2D Systolic Function EF 4C: 68.00 >55% EF 2C: 54.00 >55% EF BiP: 60.50 >55% Mitral Valve MV Pk E: 0.93 MV PK A: 0.53 MV Decel Time: 146.00 E/A: 1.80 E'Lateral: 17.40 E'Medial: 10.80 E/E' Med: 8.60 E/E' Lat: 5.30 PHT: 43.00 MVA PHT: 5.12 Decel [place]: 6.38 Aortic Valve AoV Pk Marcelino: 1.42 AoV Mn Marcelino: 0.95 AoV VTI: 0.35 AoV Pk Grad: 8.00 Aov Mn Grad: 4.00 ASHLEY Cont.VTI: 2.24 LVOT LVOT Pk Marcelino: 1.11 LVOT Mn Marcelino: 0.71 LVOT VTI: 0.25 LVOT Pk Grad: 5.00 LVOT Mn Grad: 3.00 LVOT Diam: 2.00 LVOT Area: 3.14 Diastolic Function MV Pk E: 0.93 MV Pk A: 0.53 E/A: 1.80 E'Medial: 10.80 E/E' Med: 8.60 E' Laterial: 17.40 E/E' Lat: 5.30 Right Ventricle TAPSE (mm): 26.00 TVS' Marcelino: 12.00 Tricuspid Valve TR Pk Marcelino: 2.13 TR Pk Grad: 18.00 RA Press: 3.00 RVSP: 21.00 Great Vessels Aorta Ao Root-2D: 2.80 2.0-3.7 cm Ao Asc: 3.40 2.1-3.4 cm Pulmonary Valve PV Pk Marcelino: 0.92 Peak PV Grad: 3.00 Updated in Other Vendor System with Status of Final Stepan Graham MD electronically signed on 08/31/2024 3:05:38 PM with status of Final
== END ==
LOC: HO.CARD 15:27
PROVIDERS: PCP Nurse Practitioner Family; Visit Provider Nurse Practitioner Family
DX: Z13.6 Encounter for screening for cardiovascular disorders (principal); Z82.49 Family history of ischemic heart disease and other diseases of the circulatory system
CPT/HCPCS: 93306

== ENCOUNTER → 2024-08-30 15:31 | Outpatient (BNV) | payer OTHER, SELFPAY | PROVIDERS: PCP Nurse Practitioner Family; Visit Provider Internal Medicine Cardiovascular Disease | DX: I36.1 Nonrheumatic tricuspid (valve) insufficiency (principal); Z82.49 Family history of ischemic heart disease and other diseases of the circulatory system | CPT/HCPCS: 93306 ==

== ENCOUNTER 2025-01-23 15:58 | Outpatient (REF) | payer OTHER, SELFPAY ==
--- NOTE | ~2025-01-23 | MM_ITS ---
EXAMINATION: MM SCREENING DIGITAL BREAST TOMOSYNTHESIS, BILATERAL CLINICAL INFORMATION: Screening. Asymptomatic. COMPARISON: Mammography: Comparison is made with available priors TECHNIQUE: Digital breast mammography with tomosynthesis is performed in both the craniocaudal and mediolateral oblique views along with computer-aided detection (CAD). FINDINGS: The breasts are extremely dense, which lowers the sensitivity of mammography (ACR BI-RADS breast composition Category d). Bilateral reduction mammoplasty. There are no significant masses, abnormal calcifications, or other abnormalities. MM/MM tomosynthesis screening BI IMPRESSION: No mammographic evidence of malignancy. ASSESSMENT: BI-RADS BI-RADS 2 - Benign Findings RECOMMENDATION: Routine annual mammography screening. 1 year F/U This examination should not preclude the clinical evaluation of a suspicious palpable abnormality. This patient's information was entered into a reminder system with a target due date for their next mammogram. Electronically signed by: Janki Remy DO 01/26/2025 06:09 AM L[place]ELL
== END 2025-01-23 15:59 | disposition home or self-care (01) ==
LOC: HO.MAMMO 15:58
PROVIDERS: PCP Nurse Practitioner Family; Visit Provider Nurse Practitioner Family
DX: Z12.31 Encounter for screening mammogram for malignant neoplasm of breast (principal)
CPT/HCPCS: 77063; 77067

== ENCOUNTER → 2025-01-23 16:15 | Outpatient (BNV) | payer OTHER, SELFPAY | PROVIDERS: PCP Nurse Practitioner Family; Visit Provider Internal Medicine | DX: Z12.31 Encounter for screening mammogram for malignant neoplasm of breast (principal) | CPT/HCPCS: 77063; 77067 ==

== ENCOUNTER 2025-02-20 08:09 | Outpatient (REF) | payer OTHER, SELFPAY | END 2025-02-20 08:10 | disposition home or self-care (01) | LOC: HO.MAMMO 08:09 | PROVIDERS: PCP Nurse Practitioner Family; Visit Provider Nurse Practitioner Family | DX: Z13.89 Encounter for screening for other disorder (principal) ==

== ENCOUNTER 2025-02-28 07:59 | Outpatient (REF) | payer OTHER, SELFPAY ==
--- NOTE | ~2025-02-28 | US_ITS ---
EXAMINATION: US SCREENING ULTRASOUND BREAST, BILATERAL CLINICAL INFORMATION: Dense breasts on mammography. Screening ultrasound. COMPARISON: None available. TECHNIQUE: Ultrasound is performed using grayscale imaging and color Doppler. Imaging is performed to include the four quadrants and retroareolar region. Both breasts are imaged. FINDINGS: Right breast: There is no suspicious finding by ultrasound. There is no solid mass or focal architectural abnormality. Left breast: There is no suspicious finding by ultrasound. There is no solid mass or focal architectural abnormality. US/US breast BI complete IMPRESSION: No suspicious findings on screening breast ultrasound. ASSESSMENT: BI-RADS 1 - Negative RECOMMENDATION: 1 year F/U This patient's information was entered into a reminder system with a target due date for their next mammogram. Electronically signed by: Janki Remy DO 02/28/2025 08:44 AM EDT
== END 2025-02-28 08:00 | disposition home or self-care (01) ==
LOC: HO.MAMMO 07:59
PROVIDERS: PCP Nurse Practitioner Family; Visit Provider Nurse Practitioner Family
DX: R92.30 Dense breasts, unspecified (principal)
CPT/HCPCS: 76641

== ENCOUNTER → 2025-02-28 08:00 | Outpatient (BNV) | payer OTHER, SELFPAY | PROVIDERS: PCP Nurse Practitioner Family; Visit Provider Internal Medicine | DX: R92.8 Other abnormal and inconclusive findings on diagnostic imaging of breast (principal) | CPT/HCPCS: 76641 ==

== ENCOUNTER 2025-04-05 07:59 | Outpatient (REF) | payer OTHER, SELFPAY ==
[2025-04-05 08:21] LABS: MANUAL DIFF FLAG NO
[2025-04-05 08:28] LABS: Basophils Absolute Auto 0.1 X10*3/uL (0.0-0.2); Basophils Percent Auto 0.7 % (0-2); Eosinophils Absolute Auto 0.2 X10*3/uL (0.0-0.4); Eosinophils Percent Auto 2.4 % (0-4); Hematocrit 37.5 % (37.0-47.0); Hemoglobin 12.6 g/dl (12.0-16.0); Imm Gran Abs Auto 0.02 X10*3/uL (0.00-0.03); Imm Gran Pct Auto 0.3 % (0.0-0.4); Lymphocytes Absolute Auto 2.7 X10*3/uL (1.2-4.9); Lymphocytes Percent Auto 38.6 % (20-40); Mean Corpuscular HGB Conc 33.6 g/dl (31.0-35.0); Mean Corpuscular Hemoglobin 31.5 pg (27.0-33.0); Mean Corpuscular Volume 93.8 fL (80.0-98.0); Monocytes Absolute Auto 0.4 X10*3/uL (0.1-1.2); Monocytes Percent Auto 6.3 % (2-11); Neutrophils Absolute Auto 3.6 x10*3/uL (2.0-8.3); Neutrophils Percent Auto 51.7 % (45-73); Platelet Count 295 X10*3/uL (160-400); Red Cell Distribution Width 12.6 % (11.0-16.0)
[2025-04-05 08:47] LABS: Appearance Urine Clear; Color Urine Yellow; Glucose Urine UA Negative (Negative); Leukocyte Esterase Urine Negative (Negative); Nitrite Urine Negative (Negative); PH 5.5 (5.0-9.0); Specific Gravity - Urine 1.015 (1.005-1.025); Urine Blood Negative (Negative); Urine Ketones Negative (Negative); Urine Protein Negative (Neg-Trace)
[2025-04-05 09:27] LABS: Erythrocyte Sedimentation Rate 7 MM/HR (0-20)
[2025-04-05 09:39] LABS: Alanine Aminotransferase 13 U/L (0-31); Alkaline Phosphatase 19 U/L (39-117); Anion Gap 11 (12-20); Aspartate Amino Transferase 22 U/L (5-31); Bilirubin Total 0.7 mg/dL (0.0-1.0); Blood Urea Nitrogen 12 mg/dL (9-16); C Reactive Protein < 0.10 mg/dL (< or = 0.50); Calcium 9.1 mg/dL (8.4-10.2); Carbon Dioxide 25 mmol/L (22-29); Chloride 108 mmol/L (96-108); Cholesterol 153 mg/dL (<200); Estimated Glomerular Filt Rate > 60; Glucose Fasting 90 mg/dL (60-99); HDL Cholesterol 76 mg/dL (>40); LDL Cholesterol Calculated 65 mg/dL (<100); Potassium 3.9 mmol/L (3.3-5.1); Sodium 140 mmol/L (135-145); TSH reflex Free T4 2.09 uIU/mL (0.32-4.0); Total Protein 6.6 g/dL (6.5-8.0); Triglycerides 64 mg/dL (<150)
[2025-04-05 09:56] LABS: Uric Acid 3.1 mg/dL (2.4-5.7)
[2025-04-06 18:20] LABS: Lyme Abs Screen <0.90 index
[2025-04-06 23:54] LABS: A. Phagocytphilium DNA,RT-PCR NOT DETECTED (NOT DETECTED); Babesia Microti DNA, RT-PCR NOT DETECTED (NOT DETECTED); Borrelia Miyamotoi,DNA RT-PCR NOT DETECTED (NOT DETECTED); E.Chaffeensis DNA RT-PCR NOT DETECTED (NOT DETECTED); Lyme(Borrelia ssp)DNA RT-PCR NOT DETECTED (NOT DETECTED)
[2025-04-07 07:24] LABS: Antibody to SS-A Antigen <1.0 NEG AI (<1.0 NEG); Antibody to SS-B Antigen <1.0 NEG AI (<1.0 NEG)
[2025-04-07 17:39] LABS: Cyclic Citrullinated Peptide <16 UNITS
[2025-04-12 08:03] LABS: Anti Nuclear Antibody Screen POSITIVE (NEGATIVE); Anti Nuclear Antibody Titer 1:40 titer
== END 2025-04-05 08:00 | disposition home or self-care (01) ==
LOC: HO.LAB 07:59
PROVIDERS: PCP Nurse Practitioner Family; Visit Provider Nurse Practitioner Family
DX: Z00.00 Encounter for general adult medical examination without abnormal findings (principal); M25.50 Pain in unspecified joint; Z13.6 Encounter for screening for cardiovascular disorders
CPT/HCPCS: 36415; 80053; 80061; 81003; 84443; 84550; 85025; 85652; 86038; 86039; 86140; 86200; 86235; 86617; 86618; 87468; 87469; 87478; 87484; 87798

== ENCOUNTER 2025-04-11 07:52 | Outpatient (AMB) | payer OTHER, SELFPAY ==
--- NOTE | 2025-04-11 07:56 | MHC.PC.OV ---
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 Officer Required: No Accompanied by: Self / Same As Patient Allergies No Known Allergies Allergy (Verified 04/11/25 07:58) Medication List - Last Reconciled 04/11/25 by TUSHAR Anaya- diazepam 5 mg PO BEDTIME PRN meloxicam 15 mg PO DAILY PRN 30 days norgestrel-ethinyl estradiol 0.3-30 mg-mcg (Ryan (28)) 1 tab PO DAILY Tobacco use date assessed: 04/11/25 Dental Screening Dental Screen Date: 04/11/25 Did you have a dental visit in the last 12 months?: Yes Did you have a dental problem in the last 6 months where you did not have access to dental care?: No Was dental information given to patient?: Patient has dentist HPI PE HPI Details History of Present Illness The patient is a 40-year-old female presenting for a routine physical examination. The primary concern addressed during the visit was right elbow pain. The patient experiences this pain particularly when the right upper extremity is extended, and the wrist is extended against resistance, with noted tenderness in the lateral epicondyle region. There are no accompanying systemic complaints such as fever, chills, or respiratory distress. 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 No specific preceding events or duration details were discussed. Health Maintenance - Mammograms: Up to date - Gynecological examination: Patient maintains regular visits Social History - Employment: Nurse Practitioner Review of Systems - General: Denies fever, chills - Cardiovascular: Denies chest pain - Respiratory: Denies shortness of breath - Gastrointestinal: Denies constipation, diarrhea, blood in stool - Genitourinary: Denies urinary issues - Musculoskeletal: Reports right elbow pain; denies other joint complaints - Neurological: Denies any neurological symptoms Physical Exam General: Cooperative, healthy appearing, comfortable, no acute distress and well developed Orientation: Patient oriented x3 Limitations: No limitations Head: Normal to inspection Ears: Hearing grossly normal bilaterally Nose: Normal external nose present Face and sinus: Normal facial exam Eyes: Appearance normal, both eyes and all related structures Neck: Normal visual inspection and Yes full ROM Respiratory: Normal respiratory effort and able to speak in complete sentences. Clear to auscultation bilaterally Cardiovascular: Regular rate and rhythm. Normal S1 and S2 GI: Normal to inspection. Soft to palpation and nontender Skin: No rashes or lesions noted Neuro: Patient oriented x3 Extremities: Tenderness noted in the right elbow, especially with right upper extremity extended and wrist extension against resistance. Most definitely a lateral epicondylitis. Results Plan I recommended the patient use a tennis elbow brace and start taking NSAIDs to manage pain and inflammation associated with lateral epicondylitis. I also instructed her to begin a rehabilitation regimen focusing on strengthening and stretching exercises to improve functionality and prevent further discomfort. Discussion Notes During the visit, I explained the diagnosis of lateral epicondylitis and its usual presentation. We discussed the management plan, emphasizing the benefits of using a tennis elbow brace for support and NSAIDs for reducing pain and inflammation. I highlighted the importance of starting a rehabilitation program to strengthen the elbow and prevent recurrence. The patient understood and agreed with the management approach and was informed of the need to monitor symptoms closely. Patient Instructions - Use a tennis elbow brace as advised - Take NSAIDs as directed for pain and inflammation - Begin a rehabilitation program focusing on elbow exercises [facility] Medical History Edgemont's disease Thrombosed external hemorrhoid Surgical History H/O breast augmentation H/O excision of epidermal inclusion cyst (06/30/23) S/P laparoscopic procedure Family History Maternal Grandmother History of breast cancer Paternal Grandmother Colon cancer Uterine cancer Social History Housing: House Patient Tobacco Use Status: Never used Tobacco e-Cigarette/Vaping Use: Never Used Second Hand Smoke Exposure: No service: No Current occupational status: employed 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 1. Little interest or pleasure in doing things: not at all 2. Feeling down, depressed, or hopeless: not at all 3. Trouble falling or staying asleep, or sleeping too much: not at all 4. Feeling tired or having little energy: not at all 5. Poor appetite or overeating: not at all 6. Feeling bad about yourself - or that you are a failure or have let yourself or your family down: not at all 7. Trouble concentrating on things, such as reading the newspaper or watching television: not at all 8. Moving or speaking so slowly that other people could have noticed. Or the opposite - being so fidgety or restless that you have been moving around a lot more than usual: not at all 9. Thoughts that you would be better off or of hurting yourself in some way: not at all Total score: 0 Depression Screening Interpretation: Negative Depression Screening Done: Yes 66642 - PHQ-9 Billing: Yes Source: Developed by Drs. Juan Dick, Ashlee Echevarria, Dalton Carrillo and colleagues, with an educational janessa from [employer]. Thrive Questionnaire Date Thrive assessed: 04/11/25 I am a: Patient What is your living situation today?: I have a steady place to live Within the past 12 months, did the food you bought not last and you didn't have the money to get more?: Never true Within the past 12 months, did you worry whether your food would run out before you got money to buy more?: Never true Do you have trouble paying for medicines?: No Do you have trouble getting transportation to medical appointments?: No Do you have trouble paying your heating and electricity bill?: No Do you have trouble taking care of your child, family member or friend?: No Do you have trouble with day-to-day activities such as bathing, preparing meals, shopping, managing finances, etc.?: No Are you currently unemployed and looking for a job?: No Are you interested in more education?: No Please select the resources that you would like help with: None Currently or been in a relationship where the following occur: I choose not to answer THRIVE Score: 0 AUDIT C Alcohol Use Questionnaire (AUDIT-C) 1. How often do you have a drink containing alcohol?: 2-4 times a month 2. How many drinks containing alcohol do you have on a typical day when you are drinking?: 1 or 2 3. How often do you have six or more drinks on one occasion?: Never Total Score: 2 Score Reviewed/Action Taken: Yes JULIAN-7 AMB Questionnaire JULIAN-7 Date JULIAN - 7 assessed: 04/11/25 Feeling nervous, anxious, or on edge: 0 = Not at all Not being able to stop or control worryin = Not at all Worrying too much about different things: 0 = Not at all Trouble relaxin = Not at all Being so restless that it is hard to sit still: 0 = Not at all Becoming easily annoyed or irritable: 0 = Not at all Feeling afraid as if something awful might happen: 0 = Not at all Total JULIAN-7 score (0-4 normal; 5-9 mild; 10-14 moderate; 15-21 severe): 0 Source: Developed by Drs. Juan Dick, Ashlee Echevarria, Dalton Carrillo and colleagues, with an educational janessa from [employer]. JULIAN-7 Assessment Billing JULIAN-7 Assessment Tool: JULIAN-7 Assessment 04389 Physical exam (Primary Care) Vital Signs: Last Vital Signs Temp 98.3 F 04/11/25 08:00 Pulse 85 04/11/25 08:00 BP 110/70 04/11/25 08:00 Pulse Ox 100 04/11/25 08:00 BMI result Body Mass Index 24.0 Tobacco/Smoking Status: Tobacco use Status Tobacco use date assessed 04/11/25 04/11/25 08:03 Patient Tobacco Use Status Never used Tobacco 04/11/25 08:03 e-Cigarette/Vaping Use Never Used 04/11/25 08:03 PHQ-9: PHQ-9 Score PHQ-9: Total score 0 04/11/25 08:03 Depression Screening Interpretation: Negative Thrive Assessment: Date of Thrive Assessment Date Thrive assessed 04/11/25 04/11/25 08:03 Currently or been in a relationship where the following occur: I choose not to answer Coding Level of Care Code Est Pt Prev Care 40-64y(66802) Diagnoses Lateral epicondylitis M77.10 Encounter for routine adult physical exam with abnormal findings Z00.01 Additional Codes JULIAN-7 Assessment Billing - JULIAN-7 Assessment Tool: JULIAN-7 Assessment [id number] ([id number]) PHQ-9 - 11681 - PHQ-9 Billing: Yes ([id number]) Assessment & Plan Assessment & Plan (1) Lateral epicondylitis: Code(s): M77.10 - Lateral epicondylitis, unspecified elbow Category: Medical (2) Encounter for routine adult physical exam with abnormal findings: Code(s): Z00.01 - Encounter for general adult medical examination with abnormal findings Category: Medical Plan . Medications: New meloxicam 15 mg PO DAILY 30 days PRN 30 tabs 1RF elbow pain meloxicam 15 mg PO DAILY 30 days PRN 30 tabs 1RF elbow pain
[2025-04-11 08:00] VITALS: BP 110/70; PULSE 85; TEMP 36.8; O2SAT 100; BMI 24.0
== END 2025-04-11 08:46 | disposition home or self-care (01) ==
LOC: HO.HMCC 07:53
PROVIDERS: PCP Nurse Practitioner Family; Visit Provider Nurse Practitioner Family
DX: M77.10 Lateral epicondylitis, unspecified elbow (principal); Z00.01 Encounter for general adult medical examination with abnormal findings

== ENCOUNTER → 2025-04-11 07:52 | Outpatient (BNVA) | payer OTHER, SELFPAY | PROVIDERS: PCP Nurse Practitioner Family; Visit Provider Nurse Practitioner Family | DX: Z00.01 Encounter for general adult medical examination with abnormal findings (principal); M77.11 Lateral epicondylitis, right elbow | CPT/HCPCS: 96127 ==

== ENCOUNTER 2025-08-01 12:56 | Outpatient (REF) | payer OTHER, SELFPAY ==
[2025-08-01 17:00] LABS: Bacterial Vaginosis PCR NEGATIVE (Negative); Candida Group PCR NOT DETECTED (Not Detect); Candida glab krusei PCR NOT DETECTED (Not Detect); Trichomonas vaginalis PCR NOT DETECTED (Not Detect)
== END 2025-08-01 12:57 | disposition home or self-care (01) ==
LOC: HO.LNP 12:56
PROVIDERS: PCP Nurse Practitioner Family; Visit Provider Advanced Practice Midwife
DX: Z01.419 Encounter for gynecological examination (general) (routine) without abnormal findings (principal); Z11.51 Encounter for screening for human papillomavirus (HPV); N89.8 Other specified noninflammatory disorders of vagina
CPT/HCPCS: 81515; 87626; 88175

== ENCOUNTER 2025-08-01 12:56 | Outpatient (AMB) | payer OTHER, SELFPAY ==
--- NOTE | 2025-08-01 13:02 | MHC.OFFVIS ---
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/ DO NOT RS Intake Note: Here for Inspector Mechanical annual does want vaginal std testing Striker Out Required: No Information Interpreted: non-clinical & clinical Trouble Locator Test Desk: Trouble Locator Test Desk Present (Ya) Accompanied by: Self / Same As Patient Allergies No Known Allergies Allergy (Verified 04/11/25 07:58) Medication List - Last Reconciled 08/01/25 by Edyta Cox LPN diazepam 5 mg PO BEDTIME PRN meloxicam 15 mg PO DAILY PRN 30 days norgestrel-ethinyl estradiol 0.3-30 mg-mcg (Ryan (28)) 1 tab PO DAILY Is last menstrual period known: Yes Last menstrual period: 07/12/25 Do you need a note to return to daycare/school/sports/work: No HPI Comments Details: Patient is a premenopausal woman presenting for annual examination. Inspector Mechanical concerns: doing well on OCP's. Increased asymptomatic vaginal discharge. Recent positive TI, has workup with a excelsior machine operator waiting for appointment. Reports joint pain. She denies any contraindications to control such as: migraines with aura, history of DVT or pulmonary emboli, high blood pressure, liver disease, thrombolic disorders, Lupus, breast cancer, or smoking. History of a perforated IUD, inserted 2 months after delivery. Currently is sexually active. STI screening offered; she declines. She tries to eat healthy and stays active with exercise. Family history of breast, ovarian, and pancreatic cancer, Father's genetic testing was negative. Last pap smear 2023, HPV positive. Mammogram: 2024. 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[facility] [place] Current occupational exposures/hazards: No Sexual orientation: Straight/Heterosexual Gender identity: Female Cognitive needs: No Hearing needs: No Vision needs: No Female Reproductive History Menstrual Date of last menstrual period: 07/12/25 control method: pills Total pregnancies: 2 Full term: 2 Number of Living Children: 2 Date of last pap smear: 11/24/23 (neg pap +hpv) History of abnormal pap smear: Yes Date of Mammogram: 01/23/25 (Birad 2) Review of Systems Const All systems reviewed & are unremarkable except as noted in HPI and below Reports as per HPI Eyes Reports no additional complaints ENT Reports no additional complaints Card Reports no additional complaints Resp Reports no additional complaints GI Reports as per HPI and Reports no additional complaints Reports as per HPI Musc Reports no additional complaints Skin/Breast Reports as per HPI Neuro Reports no additional complaints Psych Reports no additional complaints Endo Reports no additional complaints Wayne/Lymph Reports no additional complaints Aller/Immun Reports no additional complaints Physical Exam Vital Signs: Last Vital Signs BP 106/68 08/01/25 13:06 BMI result Body Mass Index 24.4 Const General: cooperative, healthy appearing, no acute distress, well developed and alert Orientation/consciousness: patient oriented x3 HEENT Head: Yes normal to inspection Eyes General: appearance normal, both eyes and all related structures Neck Neck: Yes normal visual inspection Thyroid: Thyroid normal Chest Other: Postsurgical scarring bilaterally. Chest palpation & inspection: normal inspection of the chest and other (no puckering, dimpling, peau de orange, retraction, discharge, masses) Breast/axilla inspection: normal inspection of the breasts Breast/axilla palpation: normal palpation of the breasts Resp Effort & Inspection: normal respiratory effort GI Inspection: Yes normal to inspection Palpation (GI): Soft to palpation Rectal Exam - Female: deferred General: Yes bladder normal to palpation External Female Exam: normal external appearance and normal appearance of the urethra Speculum Exam - Vagina: normal appearance of the vagina, normal palpation and normal vaginal discharge Speculum Exam - Cervix: normal appearance of the cervix, normal palpation and Other cervical findings present (prominent, bled w/pap) Bimanual exam- vagina & uterus: normal bimanual exam, normal palpation, uterine size normal, bladder normal to palpation, normal palpation and non-tender Bimanual Exam- Adnexa, other: no masses Skin General skin exam: no rashes or lesions noted Rashes: no rashes Neuro General: patient oriented x3 Cognition (Neuro): normal cognition Extrem General: Yes normal to inspection Psych Attitude: cooperative Thought process: Normal thought process present Assessment & Plan Assessment & Plan (1) Encounter for annual routine gynecological examination: Code(s): Z01.419 - Encounter for gynecological examination (general) (routine) without abnormal findings Category: Medical Plan Discussed: Current recommendations for pap smears per ASCCP guidelines. Pap obtained. Breast awareness and periodic breast exams. Mammogram yearly. Maintain a healthy lifestyle including a well balanced diet and routine exercise. control hormone use warnings: go to ER if and loss of vision, blindness, severe headache, chest pain or difficulty breathing, severe abdominal pain, or any pain or swelling in an extremity. Inform of workup with rheumatology when results are in, advised [facility] medical eligibility information with combined OCP use, alternative options. Colonoscopy >45, or at risk sooner. Patient verbalizes understanding and agrees to the plan of care. She was given opportunity to ask questions and all questions were answered to the best of my ability. RTO in one year for annual manager gyn examination. This note is constructed using voice recognition software. While every effort has been made to ensure accuracy, orchestra director errors may have been included. Orders: Orders Pap Smear Today Z01.419 - Encounter for gynecological examination (general) (routine) without abnormal findings Bacterial Vaginosis Panel Today N89.8 - Other specified noninflammatory disorders of vagina HPV High risk Today Z01.419 - Encounter for gynecological examination (general) (routine) without abnormal findings Medications: New norgestrel-ethinyl estradiol 0.3-30 mg-mcg (Ryan (28)) Take as directed 1 tab PO DAILY 84 tabs 4RF Coding Level of Care Code Est Pt Prev Care 40-64y(59208) Diagnoses Encounter for annual routine gynecological examination Z01.419
[2025-08-01 13:06] VITALS: BP 106/68; BMI 24.4
--- OUTSIDE RECORDS SUMMARY | 2025-08-01 15:14 | XMS_ITS | Patient Health Record ---
Author Organization [facility] Address [address] [place] [address] Care Team Providers Care Pack Operator Name Role Phone Janay Boles Primary Care Provider UnavailHarry Ron Unavailable [phone] Reason For Referral No Information Medications Medication SIG (Take, Route, Frequency, Duration) Notes Start Date End Date Status Cryselle-28 0.3-30 MG-MCG Oral; Duration: 84 Active Betamethasone Dipropionate 0.05 % External; Duration: 7 Not-Ta radha Fluconazole 200 MG Oral; Duration: 14 Not-Taking Ketoconazole 2 % External; Duration: 30 Not-Taking Terbinafine HCl 250 MG Oral; Duration: 30 Unknown Social History Tobacco Use: Social History Observation Description Date Details (start date - stop date) Never Smoker NA - NA Tobacco Use/Smoking Question Answer Notes Are you a: nonsmoker Additional Findings: Tobacco Non-User Current no n-smoker Alcohol Screen Question Answer Notes Did you have a drink containing alcohol in the p ast year? Yes Points 0 Interpretation Negative Tobacco use other than smoking: Question Answer Notes Are you an other tobacco user? No Problems Problem Type SNOMED Code ICD Code Onset Dates Problem Status W/U Status Risk Notes Problem Localized, primary osteoarthritis of the ankle and/or foot (203908048) Primary osteoarthrit is, right ankle and foot (M19.071) Active confirmed Problem Acquired hallux valgus (38694311) Hallux valgus (acquired), right foot (M20.11) Active confirmed Plan Of Treatment Pending Test Test Name Order Date X ray : Foot, right 3V 02/23/2019 Insurance Providers Payer Name Payer Address Payer Phone Subscriber Number Group Number Insured Name Patient Relationship to Insured Coverage Start Date Coverage End Date R [address] [address] [place] [address] [id number] Ela Heath Self - patient is the insured Medical (General) History Medical History History ICD Code Chicken pox Kidney stones Surgical History Surgery Date(Month/Year) kidney stones 03/2017 Laparoscopy 10/2004
== END 2025-08-01 14:22 | disposition home or self-care (01) ==
LOC: HO.HWS 12:56
PROVIDERS: PCP Nurse Practitioner Family; Visit Provider Advanced Practice Midwife
DX: Z01.419 Encounter for gynecological examination (general) (routine) without abnormal findings (principal)
CPT/HCPCS: 99396; 99459

== ENCOUNTER 2025-08-01 13:54 | Outpatient (REF) | payer OTHER, SELFPAY | END 2025-08-01 13:55 | disposition home or self-care (01) | LOC: HO.LAB 13:54 | PROVIDERS: Visit Provider Advanced Practice Midwife | DX: Z13.89 Encounter for screening for other disorder (principal) ==

== ENCOUNTER 2025-10-14 09:41 | Outpatient (REF) | payer OTHER, SELFPAY ==
--- NOTE | ~2025-10-14 | US_ITS ---
EXAMINATION: US KIDNEY BILATERAL HISTORY: N20.0 - Calculus of kidney TECHNIQUE: Real-time grayscale ultrasound imaging of the kidneys was performed and images were reviewed. COMPARISON: Comparison is made with the prior examination dated 05/28/2022. FINDINGS: Right kidney: The right kidney measures 10.7 x 5.3 x 5.1 cm. Renal parenchymal echotexture and thickness are normal. There is a hypertrophied column of Dennys. There are no masses. There is a 6 x 3 x 7 mm nonobstructing calculus in the midportion of the kidney and a 3 mm nonobstructing calculus at the lower pole. There is no hydronephrosis. Left Kidney: The left kidney measures 11.1 x 4.7 x 4.8 cm. Renal parenchymal echotexture and thickness are normal. There are no masses. There is no hydronephrosis or renal calculi. US/US renal BI IMPRESSION: Right nephrolithiasis as described. Electronically signed by: Juan Rothman MD 10/16/2025 07:02 AM [facility]
== END 2025-10-14 09:42 | disposition home or self-care (01) ==
LOC: HO.US 09:41
PROVIDERS: PCP Nurse Practitioner Family; Visit Provider Urology
DX: N20.0 Calculus of kidney (principal)
CPT/HCPCS: 76775

== ENCOUNTER → 2025-10-14 09:43 | Outpatient (BNV) | payer OTHER, SELFPAY | PROVIDERS: PCP Nurse Practitioner Family; Visit Provider Radiology Diagnostic Radiology | DX: N20.0 Calculus of kidney (principal) | CPT/HCPCS: 76775 ==

== ENCOUNTER 2025-10-25 13:25 | Outpatient (REF) | payer OTHER, SELFPAY ==
[2025-10-25 15:56] LABS: Bacterial Vaginosis PCR NEGATIVE (Negative); Candida Group PCR NOT DETECTED (Not Detect); Candida glab krusei PCR NOT DETECTED (Not Detect); Trichomonas vaginalis PCR NOT DETECTED (Not Detect)
== END 2025-10-25 13:26 | disposition home or self-care (01) ==
LOC: HO.LNP 13:25
PROVIDERS: PCP Nurse Practitioner Family; Visit Provider Advanced Practice Midwife
DX: N89.8 Other specified noninflammatory disorders of vagina (principal)
CPT/HCPCS: 81515; 87070; 87205

== ENCOUNTER 2025-10-25 13:25 | Outpatient (AMB) | payer OTHER, SELFPAY ==
--- NOTE | 2025-10-25 13:38 | MHC.OFFVIS ---
Vital Signs 10/25/25 13:41 Height 5 ft 4 in Weight 147 lb BMI 25.2 BP 112/74 Blood Pressure Location Lt brachial Position Sitting Intake Visit Reasons: cultures Allergies No Known Allergies Allergy (Verified 10/25/25 13:43) Is last menstrual period known: Yes Last menstrual period: 10/06/25 HPI Comments Details: Patient is here today with concerns of increased vaginal discharge without any symptoms including odor. Current OCP user, reports little withdrawal bleed usually. 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[employer] [place] Current occupational exposures/hazards: No Sexual orientation: Straight/Heterosexual Gender identity: Female Cognitive needs: No Hearing needs: No Vision needs: No Female Reproductive History Menstrual Duration of menses: 3-5 days Date of last menstrual period: 10/06/25 control method: none and pills Total pregnancies: 2 Number of Living Children: 2 Date of last pap smear: 08/02/25 History of abnormal pap smear: Yes (2023 HPV+) Date of Mammogram: 01/23/25 Review of Systems Const All systems reviewed & are unremarkable except as noted in HPI and below Physical Exam Vital Signs: Last Vital Signs BP 112/74 10/25/25 13:41 BMI result Body Mass Index 25.2 Const General: cooperative, healthy appearing and no acute distress Orientation/consciousness: patient oriented x3 GI Inspection: Yes normal to inspection Palpation (GI): Soft to palpation and Other GI palpation findings present (Nontender) Rectal Exam - Female: visual inspection normal General: Yes bladder normal to palpation External Female Exam: normal appearance of the urethra Speculum Exam - Vagina: normal appearance of the vagina, normal palpation and normal vaginal discharge Speculum Exam - Cervix: normal appearance of the cervix, normal palpation and Abnormal cervical discharge present (Thick ) yellow Bimanual exam- vagina & uterus: normal bimanual exam, normal palpation, uterine size normal, bladder normal to palpation, normal palpation, uterine shape normal and non-tender Bimanual Exam- Adnexa, other: normal adnexae Neuro General: patient oriented x3 Assessment & Plan Assessment & Plan (1) Vaginal discharge: Code(s): N89.8 - Other specified noninflammatory disorders of vagina Plan Plan repeat BV panel and a generalized culture, await results for final plan of care. The patient expressed understanding and agreement with the plan of care. All of her questions and concerns were addressed to the best of my ability. This note is constructed using voice recognition software. While every effort has been made to ensure accuracy, regulatory affairs strategy specialist errors may have been included. Orders: Orders Bacterial Vaginosis Panel Today N89.8 - Other specified noninflammatory disorders of vagina Routine Culture w Gram Stain Today N89.8 - Other specified noninflammatory disorders of vagina Coding Level of Care Code Est Pt Level 3 (38899) Diagnoses Vaginal discharge N89.8
[2025-10-25 13:41] VITALS: BP 112/74; BMI 25.2
--- OUTSIDE RECORDS SUMMARY | 2025-10-25 15:59 | XMS_ITS | Patient Health Record ---
Author Organization [facility] Address [address] [place] [address] Care Team Providers Care Customs Collector Name Role Phone Janay Boles Primary Care Provider Unavailab Harry Lincoln Unavailable [phone] Reason For Referral No Information Medications Medication [...] primary osteoarthritis of the ankle and/or foot (730709320) Primary osteoarthrit is, right ankle and foot (M19.071) Active confirmed Problem Acquired hallux valgus (76366921) Hallux valgus (acquired), right foot (M20.11) Active confirmed Plan Of Treatment Pending Test Test Name Order Date X ray : Foot, right 3V 02/23/2019 Insurance Providers Payer Name Payer Address Payer Phone Subscriber Number Group Number Insured Name Patient Relationship to Insured Coverage Start Date Coverage End Date R [address] [address] [place] [address] [id number] Ela Heath Self - patient is the insured Medical (General) History Medical History History ICD Code Chicken pox Kidney stones Surgical History Surgery Date(Month/Year) kidney stones 03/2017 Laparoscopy 10/2004
== END 2025-10-25 14:11 | disposition home or self-care (01) ==
LOC: HO.HWS 13:26
PROVIDERS: PCP Nurse Practitioner Family; Visit Provider Advanced Practice Midwife
DX: N89.8 Other specified noninflammatory disorders of vagina (principal)
CPT/HCPCS: 99213

== ENCOUNTER 2025-10-26 07:47 | Outpatient (REF) | payer OTHER, SELFPAY | END 2025-10-26 07:48 | disposition home or self-care (01) | LOC: HO.LNP 07:47 | PROVIDERS: PCP Nurse Practitioner Family; Visit Provider Advanced Practice Midwife | DX: N89.8 Other specified noninflammatory disorders of vagina (principal); Z53.21 Procedure and treatment not carried out due to patient leaving prior to being seen by health care provider | CPT/HCPCS: 87070; 87077; 87186; 87205 ==